=== PATIENT | male | born 1990 | race Caucasian/White ===

== ENCOUNTER 2016-04-25 13:38 | Emergency (ER) | payer MEDICAID ==
[~2016-04-25] VITALS: Ht 160 cm; Wt 86.2 kg
[2016-04-25 13:41] VITALS: BP 164/115
--- NOTE | 2016-04-25 13:54 | NUR ---
PT W/C ASSISTED TO BED 4 AT THIS TIME.
--- NOTE | 2016-04-25 13:56 | NUR ---
26/M BIB FAMILY C/O BLOODY VOMIT S/P DRINKING ALCOHOL FOR 5 DAYS STRAIGHT. PT STATES NO BLOODY VOMITING NOTED AT THIS TIME;SKIN IS PINK/WARM/DRY; AAOX4 WITH EVEN AND STEADY GAIT; LUNGS CLEAR BL; HR 112 / MINS, BP 158/95 AT THIS TIME. PT DENIES ANY FEVER, CP, SOB, OR COUGH AT THIS TIME; PATIENT STATES HAS ABDOMINAL PAIN OF 7/10 AT THIS TIME;PATIENT POSITIONED FOR COMFORT; HOB ELEVATED; BEDRAILS UP X2; BED DOWN. ER MD MADE AWARE OF PT STATUS.
[2016-04-25] MEDS ORDERED: NACL 0.9% 1,000 ML IV SCH (14:06)
[2016-04-25] MEDS ORDERED: PANTOPRAZOLE 40 MG INJ VIAL IVP ONE (14:10)
[2016-04-25] MEDS ORDERED: ONDANSETRON 4 MG/2 ML VIAL IVP ONE (14:10)
[2016-04-25] MEDS ORDERED: OCTREOTIDE ACETATE 100 MCG/ML VIAL IV SCH (14:10)
[2016-04-25] MEDS ORDERED: LORazepam 2 MG/ML VIAL IVP ONE (14:10)
[2016-04-25 14:36] LABS: BASOPHILS # (AUTO) 0.1 K/uL (0.00-0.22); BASOPHILS % (AUTO) 1.7 % (0.0-2.0); EOSINOPHILS # (AUTO) 0.1 K/uL (0-0.4); EOSINOPHILS % (AUTO) 1.2 % (0.0-4.0); HEMATOCRIT 46.7 % (36-52); HEMOGLOBIN 15.6 g/dL (12.0-18.0); LYMPHOCYTES # (AUTO) 1.4 K/uL (2.0-11.5); MEAN CORPUSCULAR HEMOGLOBIN 32 pg (27-31); MEAN CORPUSCULAR HGB CONC 34 g/dL (33-37); MEAN CORPUSCULAR VOLUME 96 fL (80-94); MONOCYTES # (AUTO) 0.6 K/uL (0.8-1.0); MONOCYTES % (AUTO) 6.9 % (1.7-9.3); NEUTROPHILS % (AUTO) 73.2 % (42.2-75.2); PLATELET COUNT (AUTO) 189 K/uL (140-450); RED BLOOD CELL COUNT(AUTO) 4.85 MIL/uL (4.20-6.10); RED CELL DISTRIBUTION WIDTH 12.7 % (11.6-13.7); WHITE BLOOD COUNT (AUTO) 8.2 K/uL (4.8-10.8)
[2016-04-25 14:47] LABS: APPEARANCE,URINE CLEAR (CLEAR); BILIRUBIN,URINE NEGATIVE (NEGATIVE); BLOOD, URINE NEGATIVE (NEGATIVE); COLOR,URINE YELLOW (YELLOW); LEUKOCYTE ESTERASE ,URINE NEGATIVE (NEGATIVE); NITRITE, URINE NEGATIVE (NEGATIVE); PH,URINE 8.5 (5.0-9.0); PROTEIN,URINE 2+ (NEGATIVE); UGLUCOSE NEGATIVE (NEGATIVE); UROBILINOGEN,URINE 0.2 EU/dL (0.2 - 1)
[2016-04-25 14:52] LABS: ANION GAP 22.2 (8-16); CALCIUM 8.9 mg/dL (8.5-10.1); CARBON DIOXIDE 24.5 mmol/L (21-32); CREATININE 0.8 mg/dL (0.6-1.3); POTASSIUM 3.7 mmol/L (3.5-5.1)
[2016-04-25 14:53] LABS: BACTERIA,URINE RARE /HPF (None Seen); MUCUS,URINE 3+ /LPF (None Seen); RBC,URINE 0-3 /HPF (0-5); SQUAMOUS EPITHELIAL CELL,UR 0-3 /LPF (0-3 (FEW)); WBC,URINE 0-3 /HPF (0-5)
[2016-04-25 14:57] LABS: ALBUMIN 4.4 g/dL (3.4-5.0); TOTAL BILIRUBIN 0.9 mg/dL (0.0-1.0); TOTAL PROTEIN, SERUM 8.5 g/dL (6.4-8.2)
[2016-04-25 14:57] LABS: AMPHETAMINE, URINE NEG. ng/ml (NEG <=1000); BARBITURATE, URINE NEG. ng/ml (NEG <=200); BENZODIAZEPINE, URINE NEG. ng/mL (NEG <=200); CANNABINOID, URINE NEG. ng/mL (NEG <=50); COCAINE, URINE NEG. ng/mL (NEG <=300); OPIATE, URINE NEG. ng/mL (NEG <=2000); PHENCYCLIDINE SCREEN,URINE NEG. ng/mL (NEG <=25)
[2016-04-25 14:58] LABS: INR 1.2 (0.8-1.2); PARTIAL THROMBOPLASTIN TIME 27.4 secs (22-35.6); PROTHROMBIN TIME 11.1 secs (10.8-13.4)
[2016-04-25 15:05] LABS: CREATINE KINASE MB 1.4 ng/mL (0-3.6)
--- NOTE | 2016-04-25 15:06 | NUR ---
CALLED [facility] FOR MED:SANDOSTATIN .
--- NOTE | 2016-04-25 16:00 | NUR ---
IV removed, catheter intact and site benign. Applied folded 4x4 gauze and tape to stop bleeding.
[2016-04-25 16:16] VITALS: BP 127/64
--- NOTE | 2016-04-25 16:16 | NUR ---
Patient discharged with v/s stable. Written and verbal after care instructions given and explained. Patient alert, oriented and verbalized understanding of instructions. Ambulatory with steady gait. All questions addressed prior to discharge. ID band removed. Patient advised to follow up with PMD. Rx of ZOFRAN & LIBRIUM given. Patient educated on indication of medication including possible reaction and side effects. Opportunity to ask questions provided and answered.
== END 2016-04-25 16:16 | disposition home or self-care (01) ==
LOC: MED 13:45
DX: K29.50 Unspecified chronic gastritis without bleeding (principal); F10.10 Alcohol abuse, uncomplicated; I10 Essential (primary) hypertension; Y90.1 Blood alcohol level of 20-39 mg/100 ml; Z98.890 Other specified postprocedural states
CPT/HCPCS: 36415; 71010; 80053; 80305; 81001; 82550; 82553; 83690; 84484; 85025; 85610; 85730; 86886; 86900; 86901; 93005; 96361; 96374; 96375; 99285; C9113; G0482; J2060; J2354; J2405; Q0092; 43753; 99284; J7030

== ENCOUNTER 2016-05-15 19:30 | Inpatient (IN) | payer MEDICAID ==
[~2016-05-15] VITALS: Ht 160 cm; Wt 90.7 kg
[2016-05-15 20:25] VITALS: BP 156/107
--- NOTE | 2016-05-15 20:58 | NUR ---
TO ER BED 3
[2016-05-15] MEDS ORDERED: LORazepam 2 MG/ML VIAL IVP ONE (21:10)
--- NOTE | 2016-05-15 21:15 | NUR ---
PATIENT PRESENTS TO ED WITH ALCOHOL WITHDRAWL SYMPTOMS . PT STATES HE HAS BEEN TRYING TO QUIT DRINKING ALCOHOL SINCE YESTERDAY. PT REPORTS HX OF HTN . DENIES N/V/D; SKIN IS PINK/WARM/DRY; AAOX4 WITH EVEN AND STEADY GAIT; LUNGS CLEAR BL; HR EVEN AND REGULAR; PT DENIES ANY FEVER, CP, SOB, OR COUGH AT THIS TIME; PATIENT STATES PAIN OF 0/10 AT THIS TIME; VSS; PATIENT POSITIONED FOR COMFORT; HOB ELEVATED; BEDRAILS UP X2; BED DOWN. ER MD MADE AWARE OF PT STATUS. AT BEDSIDE AT THIS TIME
[2016-05-15] MEDS ORDERED: MULTIVITAMIN-12 10 ML, THIAMINE 100 MG, MAGNESIUM SULFATE 50% 2,000 MG, FOLIC ACID 5 MG... IV ONE (21:20)
[2016-05-15] MEDS ORDERED: ONDANSETRON 4 MG/2 ML VIAL ONE (21:37)
[2016-05-15] MEDS ORDERED: ONDANSETRON 4 MG/2 ML VIAL IVP ONE (21:55)
[2016-05-15] MEDS ORDERED: MULTIVITAMIN-12 10 ML, THIAMINE 100 MG, MAGNESIUM SULFATE 50% 2,000 MG, FOLIC ACID 5 MG... IV STA (21:55)
[2016-05-15] MEDS ORDERED: LORazepam 2 MG/ML VIAL IVP STA (21:56)
[2016-05-15] MEDS ORDERED: FOLIC ACID 5 MG/ML SYR ONE (22:11)
[2016-05-15] MEDS ORDERED: MAGNESIUM SULFATE 50% 1000 MG/2 ML VIAL IV ONE (22:11)
[2016-05-15] MEDS ORDERED: THIAMINE 200 MG/2 ML VIAL ONE (22:11)
[2016-05-15] MEDS ORDERED: MULTIVITAMIN-12 10 ML VIAL IV ONE (22:11)
--- NOTE | 2016-05-15 23:15 | NUR ---
Patient appears to be resting comfortably in bed. Vital Signs within normal limits. Respirations even and unlabored. AT BEDSIDE AT THIS TIME
--- NOTE | 2016-05-15 23:57 | NUR ---
ATTEMPTED TO GIVE REPORT AT THIS TIME. RN BUSY AT THIS TIME. TO CALL BACK
--- NOTE | 2016-05-16 00:04 | NUR ---
Patient will be admitted to care of DR. ALLEN. Admited to TELE. Will go to room 108B. Belongings list completed. Report to KURT PARSON.
--- NOTE | 2016-05-16 00:05 | NUR ---
ADMITTED A PT FROM ER. TRANSPORTED VIA GURNEY, ACCOMPANIED BY ER NURSE. PT IS AAOX4, HAS NO COMPLAIN OF PAIN. ON ROOM AIR, NO S/S OF RESPIRATORY DISTRESS/DISCOMFORT NOTED. IV SITE PATENT AND INTACT. ID BAND UPDATED. SKIN CHECKING DONE. MRSA SWABBING DONE. ORIENTATION TO ROOM, PLAN OF DISCUSSED, VERBALIZED UNDERSTANDING. SAFETY MEASURES INITIATED, CALL LIGHT WITHIN REACH. WILL CONTINUE TO MONITOR.
--- NOTE | 2016-05-16 00:17 | NUR ---
Pt report given to EB HICKS. Transfer of care at this time.
--- NOTE | 2016-05-16 00:30 | NUR ---
JERRY CALLED VIA TELEPHONE AND SPOKE TO THE PATIENT.
[2016-05-16 00:50] VITALS: BP 144/98
[2016-05-16] MEDS ORDERED: HYDROcodone/APAP 5/325 MG 1 TAB TAB PO PRN (01:40)
[2016-05-16] MEDS ORDERED: ONDANSETRON 4 MG/2 ML VIAL IVP PRN (01:40)
[2016-05-16] MEDS ORDERED: ACETAMINOPHEN 325 MG TAB PO PRN (01:40)
[2016-05-16] MEDS ORDERED: LORazepam 2 MG/ML VIAL IVP PRN (01:40)
--- NOTE | 2016-05-16 01:50 | NUR ---
PT IS SLEEPING AT THIS TIME, NO SIGNS OF DISTRESS NOTED.
[2016-05-16] MEDS: DEXT 5% /NACL 0.9% 1,000 ML IV SCH ×3 (03:27→17:08)
[2016-05-16 04:00] VITALS: BP 150/94
--- NOTE | 2016-05-16 04:00 | NUR ---
V/S CHECKED. HAS NO COMPLAIN OF PAIN. NO S/S OF RESPIRATORY DISTRESS/DISCOMFORT NOTED.
[2016-05-16] MEDS: LORazepam 1 MG TAB PO SCH ×3 (05:00→20:15)
--- NOTE | 2016-05-16 06:48 | NUR ---
PT IS VOMITING. ADMINISTERED ZOFRAN PER MD ORDERED.
--- NOTE | 2016-05-16 07:15 | NUR ---
ENDORSED REPORT TO DAY SHIFT NURSE FOR CONTINUITY OF CARE. PT IS STABLE.
--- NOTE | 2016-05-16 07:35 | NUR ---
PATIENT HAS BEEN SCREENED AND CATEGORIZED MODERATE NUTRITION RISK. PATIENT WILL BE SEEN WITHIN 3-5 DAYS OF ADMISSION. 05/18/16-05/20/[address]
--- NOTE | 2016-05-16 07:36 | NUR ---
PT ASLEEP IN BED, EASILY AROUSABLE. BREATHING EVENLY AND UNLABORED. NO SIGNS OF ACUTE DISTRESS. SKIN IS INTACT WARM AND DRY. NO SIGNS OF ANY BOWEL/BLADDER DISCOMFORT. NO C/O OF PAIN. ALL NEEDS ATTENDED, SAFETY PRECAUTIONS MAINTAINED. CALL LIGHT WITHIN REACH.
[2016-05-16 08:00] VITALS: BP 158/103
[2016-05-16] MEDS: MULTIVITAMIN 1 TAB PO SCH (08:10)
[2016-05-16] MEDS: FOLIC ACID 1 MG TAB PO SCH (08:10)
[2016-05-16] MEDS: THIAMINE 100 MG TAB PO SCH (08:10)
[2016-05-16 12:00] VITALS: BP 151/106
[2016-05-16 15:56] VITALS: BP 157/100
--- NOTE | 2016-05-16 19:02 | NUR ---
PT ALERT AND RESPONSIVE, NO SIGNS OF ACUTE DISTRESS. ENDORSED TO ONCOMING DIRECTOR OF MANUFACTURING OPERATIONS NURSE FOR CONTINUITY OF CARE.
--- NOTE | 2016-05-16 19:03 | NUR ---
RECEIVED REPORT FROM DAY SHIFT NURSE. PT IS AAOX4, HAS NO COMPLAIN OF PAIN AT THIS TIME. ON ROOM AIR, HAS NO S/S OF RESPIRATORY DISTRESS/DISCOMFORT NOTED. IV SITE IS PATENT AND INTACT. PLAN OF CARE DISCUSSED, VERBALIZED UNDERSTANDING. SAFETY MEASURES CHECKED, CALL LIGHT WITHIN REACH. WILL CONTINUE TO MONITOR.
[2016-05-16 20:00] VITALS: BP 145/100
--- NOTE | 2016-05-16 20:16 | NUR ---
VITALS CHECKED, NO COMPLAIN OF PAIN. DUE PO MED GIVEN. PT TOLERATED WELL.
--- NOTE | 2016-05-16 22:10 | NUR ---
PT SLEEPING. HAS NO S/S OF RESPIRATORY DISTRESS/DISCOMFORT NOTED. CALL LIGHT WITHIN REACH.
[2016-05-17] VITALS: BP 143/88
--- NOTE | 2016-05-17 | NUR ---
V/S CHECKED AND STABLE. HAS NO COMPLAIN OF PAIN. NO S/S OF RESPIRATORY DISTRESS/ DISCOMFORT NOTED.
--- NOTE | 2016-05-17 02:00 | NUR ---
PT SLEEPING. NO S/S OF RESPIRATORY DISTRESS/DISCOMFORT NOTED. SAFETY MEASURES CHECKED, CALL LIGHT WITHIN REACH.
[2016-05-17] MEDS: DEXT 5% /NACL 0.9% 1,000 ML IV SCH ×2 (03:59→09:28)
[2016-05-17 04:00] VITALS: BP 147/103
--- NOTE | 2016-05-17 04:00 | NUR ---
PT SLEEPING, BUT EASILY AROUSABLE BY HIS NAME. V/S CHECKED, HAS NO COMPLAIN OF PAIN. NO S/S OF RESPIRATORY DISTRESS/DISCOMFORT NOTED.
[2016-05-17] MEDS: LORazepam 1 MG TAB PO SCH (05:00)
--- NOTE | 2016-05-17 07:20 | NUR ---
ENDORSED REPORT TO DAY SHIFT NURSE FOR CONTINUITY OF CARE. PT REMAIN IN STABLE CONDITION.
--- NOTE | 2016-05-17 07:25 | NUR ---
RECEIVED REPORT FROM NIGHT RN. PT RESTING IN BED. AAOX4. NO S/S OF ACUTE DISTRESS. PT DENIES PAIN. IV SITE PATENT AND INTACT. CALL LIGHT WITHIN REACH. SAFETY MEASURES ENSURED. WILL CONTINUE TO MONITOR.
[2016-05-17 08:36] VITALS: BP 140/82
[2016-05-17] MEDS: FOLIC ACID 1 MG TAB PO SCH (09:27)
[2016-05-17] MEDS: MULTIVITAMIN 1 TAB PO SCH (09:27)
[2016-05-17] MEDS: THIAMINE 100 MG TAB PO SCH (09:27)
[2016-05-17] MEDS ORDERED: TAB-A-VITE1 TA3 PO (09:45)
[2016-05-17] MEDS ORDERED: NATURE'S BLEND100 M2 PO (09:45)
[2016-05-17] MEDS ORDERED: NATURE'S BLEND F1 M1 PO (09:45)
[2016-05-17] MEDS ORDERED: ATIVAN1 M1 PO (09:45)
--- NOTE | 2016-05-17 10:06 | NUR ---
PT RESTING IN BED. NO S/S OF ACUTE DISTRESS. PT DENIES PAIN. IV SITE PATENT AND INTACT. PT TOLERATED AM MEDS WELL. CALL LIGHT WITHIN REACH. SAFETY MEASURES ENSURED. WILL CONTINUE TO MONITOR.
[2016-05-17 10:12] VITALS: BP 140/82
--- NOTE | 2016-05-17 10:59 | NUR ---
PT CLEARED FOR DISCHARGE. DISCHARGE INSTRUCTIONS PROVIDED. PT VERBALIZED UNDERSTANDING. IV TAKEN OUT. TIP INTACT. PT'S HERE [facility] TRANSPORT. NO S/S OF ACUTE DISTRESS. PT DENIES PAIN. PT REMAINS IN STABLE CONDITION.
== END 2016-05-17 11:20 | disposition home or self-care (01) | DRG 775 ==
LOC: MED 19:30 → MTU 23:10
PROVIDERS: ADMIT Preventive Medicine Preventive Medicine/Occupational Environmental Medicine; ATTEND Preventive Medicine Preventive Medicine/Occupational Environmental Medicine
DX: F10.239 Alcohol dependence with withdrawal, unspecified (principal); K92.0 Hematemesis; Y90.1 Blood alcohol level of 20-39 mg/100 ml; I10 Essential (primary) hypertension; R74.0 Nonspecific elevation of levels of transaminase and lactic acid dehydrogenase [LDH]; E16.2 Hypoglycemia, unspecified

== ENCOUNTER 2016-06-10 11:50 | Emergency (ER) | payer MEDICAID ==
[~2016-06-10] VITALS: Ht 162.6 cm; Wt 86.2 kg
[~2016-06-10 11:50] MED LIST: ATIVAN1 M1 PO; NATURE'S BLEND F1 M1 PO; NATURE'S BLEND100 M2 PO; TAB-A-VITE1 TA3 PO
[2016-06-10 11:57] VITALS: BP 125/102
--- NOTE | 2016-06-10 12:15 | NUR ---
PATIENT PRESENTS TO ED WITH SEVERE TREMORS VISUAL HALLUCINATION (ANTS CRAWLING ON THE NUNEZ) . PT STATES HEADACHE, ANXIOUS; SKIN IS PINK/WARM/DRY; AAOX4 WITH EVEN AND STEADY GAIT; LUNGS CLEAR BL; HR EVEN AND REGULAR; PT DENIES ANY FEVER, CP, SOB, OR COUGH AT THIS TIME; PATIENT STATES PAIN OF 8/10 AT THIS TIME; VSS; PATIENT POSITIONED FOR COMFORT; HOB ELEVATED; BEDRAILS UP X2; BED DOWN. ER MD MADE AWARE OF PT STATUS.
[2016-06-10] MEDS ORDERED: MULTIVITAMIN-12 10 ML, THIAMINE 100 MG, MAGNESIUM SULFATE 50% 2,000 MG, FOLIC ACID 5 MG... IV ONE (12:17)
[2016-06-10] MEDS ORDERED: LORazepam 2 MG/ML VIAL IVP ONE (12:20)
[2016-06-10] MEDS ORDERED: ONDANSETRON 4 MG/2 ML VIAL IVP ONE (12:20)
--- NOTE | 2016-06-10 12:20 | NUR ---
PT HELD IN TRIAGE AND TREATMENT STARTED--, CARPET INSPECTOR MADE AWARE--- ROOM BEING MADE FOR PT----
[2016-06-10] MEDS ORDERED: ONDANSETRON 4 MG/2 ML VIAL ONE (12:23)
[2016-06-10] MEDS ORDERED: NACL 0.9% 1,000 ML IV ONE (12:40)
--- NOTE | 2016-06-10 13:10 | NUR ---
Patient transferred to bed 6 for further care.
--- NOTE | 2016-06-10 13:20 | NUR ---
PT RESTING ON BED;NO ACUTE DISTRESS NOTED;WILL CONTINUE TO MONITOR PT.
--- NOTE | 2016-06-10 14:50 | NUR ---
PT SLEEPING;PT ASKED FOR WATER STATES "I'M SO THIRSTY"GAVE PT I CUP OF WATER;NO ACUTE DSITRESS NOTED;WILL CONTINUE TO MONITOR PT.
--- NOTE | 2016-06-10 15:49 | NUR ---
PT ASKED FOR ANOTHER CUP OF WATER;PT CONSUMMED 1 CUP OF WATER;STATES "HE FEELS MUCH BETTER"WILL CONTINUE TO MONITOR PT.
--- NOTE | 2016-06-10 16:45 | NUR ---
IV SITE IS LEAKING;FIXED LOOSE CONNECTOR OF TUBING AND CATH;NO INFILTRATION NOTED;
--- NOTE | 2016-06-10 17:05 | NUR ---
REDUCED TREMORS ON UPPER EXTREMITIES NOTED;PT STATES HE FEELS MUCH BETTER";WILL CONTINUE TO MONITOR PT.
--- NOTE | 2016-06-10 17:07 | NUR ---
DR ORO AT BEDSIDE.
--- NOTE | 2016-06-10 17:38 | NUR ---
Patient discharged with v/s stable. Written and verbal after care instructions given and explained.Patient alert, oriented and verbalized understanding of instructions. Ambulatory with steady gait. All questions addressed prior to discharge. ID band removed. Patient advised to follow up with PMD. Rx of ATIVAN given. Patient educated on indication of medication including possible reaction and side effects. Opportunity to ask questions provided and answered.ADVISED PT TO INCREASE FLUID AND TO REST TO DETOXIFY ALCOHOL.
[2016-06-10 17:39] VITALS: BP 145/90
== END 2016-06-10 17:38 | disposition home or self-care (01) ==
LOC: MED 11:50
DX: F10.129 Alcohol abuse with intoxication, unspecified (principal); I10 Essential (primary) hypertension
CPT/HCPCS: 36415; 80053; 80305; 84484; 85025; 96365; 96366; 96375; 99285; A9153; G0482; J2060; J2405; J3411; J3475; J3490; J7030

== ENCOUNTER 2016-07-06 09:23 | Emergency (ER) | payer MEDICAID ==
[~2016-07-06] VITALS: Ht 157.5 cm; Wt 83.9 kg
[2016-07-06 09:25] VITALS: BP 149/88
--- NOTE | 2016-07-06 09:33 | NUR ---
PT AMBULATED TO BED 5.
--- NOTE | 2016-07-06 09:33 | NUR ---
Lucía rubalcava in [facility] - 07/06/16 at 0938 by PEDRO LUIS PT AMBULATED TO BED 4.
--- NOTE | 2016-07-06 09:35 | NUR ---
PATIENT PRESENTS TO ED WITH GENERALIZED TREMORS AND RIGHT HAND PAIN . PT STATES . ACTIVELY VOMITING; SKIN IS PINK/WARM/DRY; AAOX4 WITH EVEN AND STEADY GAIT; LUNGS CLEAR BL; HR EVEN AND REGULAR; PT DENIES ANY FEVER, CP, SOB, OR COUGH AT THIS TIME; PATIENT STATES PAIN OF 6/10 AT THIS TIME; VSS; PATIENT POSITIONED FOR COMFORT; HOB ELEVATED; BEDRAILS UP X2; BED DOWN. ER MD MADE AWARE OF PT STATUS.
[2016-07-06] MEDS ORDERED: NACL 0.9% 1,000 ML IV SCH (09:36)
[2016-07-06] MEDS ORDERED: PANTOPRAZOLE 40 MG INJ VIAL IVP ONE (09:40)
[2016-07-06] MEDS ORDERED: LORazepam 2 MG/ML VIAL IVP ONE (09:40)
[2016-07-06] MEDS ORDERED: ONDANSETRON 4 MG/2 ML VIAL IVP ONE (09:40)
--- NOTE | 2016-07-06 10:14 | NUR ---
AT BEDSIDE, INSTRUCTED PT NOT TO GET OUT OF GUERNEY WITHOUT HELP. REMAINS WITH GENERALIZED TREMORS.
[2016-07-06] MEDS ORDERED: MAG SULF 2000 MG/WATER PREMIX 50 ML IV ONE (10:35)
[2016-07-06] MEDS ORDERED: NACL 0.9% 1,000 ML IV ONE (10:35)
[2016-07-06] MEDS ORDERED: THIAMINE 100 MG TAB PO SCH (10:44)
[2016-07-06] MEDS ORDERED: MULTIVITAMIN 1 TAB PO SCH (10:44)
[2016-07-06] MEDS ORDERED: FOLIC ACID 1 MG TAB PO SCH (10:44)
--- NOTE | 2016-07-06 10:53 | NUR ---
NO CONTINUED EMESIS, PT DENIES NAUSEA---MD SPOKE WITH PT. MILD TREMORS NOTED. WILL CONTINUE TO OBSERVE FOR N/V CONTROL
[2016-07-06 11:31] VITALS: BP 115/85
--- NOTE | 2016-07-06 11:32 | NUR ---
Patient discharged with v/s stable. Written and verbal after care instructions given and explained. Patient alert, oriented and verbalized understanding of instructions. Ambulatory with steady gait. All questions addressed prior to discharge. ID band removed. Patient advised to follow up with PMD. Rx of ZOFRAN/ PROTONIX given. Patient educated on indication of medication including possible reaction and side effects. Opportunity to ask questions provided and answered.
[2016-07-07] MEDS ORDERED: FOLIC ACID 1 MG TAB PO SCH (09:00)
[2016-07-07] MEDS ORDERED: THIAMINE 100 MG TAB PO SCH (09:00)
[2016-07-07] MEDS ORDERED: MULTIVITAMIN 1 TAB PO SCH (09:00)
== END 2016-07-06 11:32 | disposition home or self-care (01) ==
LOC: MED 09:23
DX: S62.316A Displaced fracture of base of fifth metacarpal bone, right hand, initial encounter for closed fracture (principal); K29.20 Alcoholic gastritis without bleeding; F10.239 Alcohol dependence with withdrawal, unspecified; I10 Essential (primary) hypertension; W20.8XXA Other cause of strike by thrown, projected or falling object, initial encounter; Y93.89 Activity, other specified; Y92.89 Other specified places as the place of occurrence of the external cause; Y99.8 Other external cause status
CPT/HCPCS: 29125; 36415; 73130; 80053; 81001; 83690; 83735; 85025; 85610; 85730; 87086; 96365; 96367; 96375; 99285; C9113; J2060; J2405; J3475; J7030; Q0092

== ENCOUNTER 2021-11-14 06:35 | Emergency (ER) | payer MEDICAID ==
[~2021-11-14] VITALS: Ht 154.9 cm; Wt 65.8 kg
[2021-11-14 06:40] VITALS: BP 131/79
--- NOTE | 2021-11-14 06:42 | NUR ---
PT BIBA BLS. TAKEN TO BED 9
[2021-11-14] MEDS ORDERED: ONDANSETRON 4 MG/2 ML VIAL IVP ONE (07:00)
[2021-11-14] MEDS ORDERED: NACL 0.9% 1,000 ML IV SCH (07:00)
--- NOTE | 2021-11-14 07:04 | NUR ---
Dr. Amador examining patient.
[2021-11-14] MEDS ORDERED: KETOROLAC 30 MG/ML VIAL IVP ONE (07:10)
[2021-11-14 07:16] LABS: BASOPHILS # (AUTO) 0.1 K/uL (0.00-0.22); BASOPHILS % (AUTO) 0.8 % (0.0-2.0); EOSINOPHILS # (AUTO) 0.1 K/uL (0-0.4); EOSINOPHILS % (AUTO) 0.5 % (0.0-4.0); HEMATOCRIT 35.5 % (36-52); HEMOGLOBIN 12.3 g/dL (12.0-18.0); LYMPHOCYTES # (AUTO) 0.6 K/uL (2.0-11.5); LYMPHOCYTES % (AUTO) 5.4 % (20.5-51.1); MEAN CORPUSCULAR HEMOGLOBIN 35 pg (27-31); MEAN CORPUSCULAR HGB CONC 35 g/dL (33-37); MEAN CORPUSCULAR VOLUME 99.4 fL (80-94); MONOCYTES # (AUTO) 0.7 K/uL (0.8-1.0); MONOCYTES % (AUTO) 6.5 % (1.7-9.3); NEUTROPHILS # (AUTO) 9.5 K/uL (1.8-7.7); NEUTROPHILS % (AUTO) 86.8 % (42.2-75.2); PLATELET COUNT (AUTO) 58 K/uL (140-450); RED BLOOD CELL COUNT(AUTO) 3.57 MIL/uL (4.20-6.10)
[2021-11-14 07:30] LABS: ALBUMIN 3.1 g/dL (3.4-5.0); ANION GAP 20.6 (8-16); CARBON DIOXIDE 21.4 mmol/L (21-32); CREATININE 0.6 mg/dL (0.6-1.3); TOTAL BILIRUBIN 0.9 mg/dL (0.0-1.0)
--- NOTE | 2021-11-14 07:38 | NUR ---
DR MEI AT BEDSIDE FOR REEVAL
[2021-11-14] MEDS ORDERED: ATA25 PO ×2 (07:43→08:02)
[2021-11-14] MEDS ORDERED: ONDA8TAB87 PO ×2 (07:43→08:02)
[2021-11-14] MEDS ORDERED: IBUP-2213 PO ×2 (07:43→08:02)
--- NOTE | 2021-11-14 08:04 | NUR ---
Patient discharged with v/s stable. Written and verbal after care instructions ABOUT N/V ABD PAIN given and explained. Patient alert, oriented and verbalized understanding of instructions. Ambulatory with steady gait. All questions addressed prior to discharge. ID band removed. Patient advised to follow up with PMD. Rx of ATARAX HCL, MOTRIN, ZOFRAN ODT given. Patient educated on indication of medication including possible reaction and side effects. Opportunity to ask questions provided and answered. GIVEN HOMELESS PACKET, FOOD AND DRINK, AND SHIRT, CALLED AN UBER FOR PT FOR DISCHARGE TO ADDRESS IN CHART.
== END 2021-11-14 08:04 | disposition home or self-care (01) ==
LOC: MED 06:35
DX: R10.13 Epigastric pain (principal)
CPT/HCPCS: 36415; 80053; 83690; 85025; 96361; 96374; 96375; 99284; J1885; J2405

== ENCOUNTER 2023-07-28 13:14 | Emergency (ER) | payer MEDICAID, OTHER ==
[~2023-07-28] VITALS: Ht 165.1 cm; Wt 70.3 kg
[~2023-07-28 13:14] MED LIST changes: +ATA25 PO; -ATIVAN1 M1 PO; +IBUP-2213 PO; -NATURE'S BLEND F1 M1 PO; -NATURE'S BLEND100 M2 PO; +ONDA8TAB87 PO; -TAB-A-VITE1 TA3 PO
[2023-07-28 13:31] VITALS: BP 117/76; PULSE 100; RESP 18; TEMP 98; O2SAT 96
[2023-07-28 13:42] VITALS: O2SAT 95
[2023-07-28] MEDS: NACL 0.9% 2,000 ML IV ONE (13:44)
[2023-07-28] MEDS: ACETAMINOPHEN EXTRA STRENGTH 500 MG TAB PO ONE (13:47)
[2023-07-28 13:49] LABS: BASOPHILS # (AUTO) 0.2 K/uL (0.00-0.22); BASOPHILS % (AUTO) 3.1 % (0.0-2.0); EOSINOPHILS # (AUTO) 0.1 K/uL (0-0.4); EOSINOPHILS % (AUTO) 2.7 % (0.0-4.0); HEMATOCRIT 31.6 % (36-52); HEMOGLOBIN 10.6 g/dL (12.0-18.0); LYMPHOCYTES # (AUTO) 1.7 K/uL (2.0-11.5); LYMPHOCYTES % (AUTO) 31.2 % (20.5-51.1); MEAN CORPUSCULAR HEMOGLOBIN 30 pg (27-31); MEAN CORPUSCULAR HGB CONC 33 g/dL (33-37); MEAN CORPUSCULAR VOLUME 89.7 fL (80-94); MONOCYTES # (AUTO) 0.4 K/uL (0.8-1.0); MONOCYTES % (AUTO) 7.7 % (1.7-9.3); NEUTROPHILS # (AUTO) 2.9 K/uL (1.8-7.7); NEUTROPHILS % (AUTO) 55.3 % (42.2-75.2); PLATELET COUNT (AUTO) 51 K/uL (140-450); RED BLOOD CELL COUNT(AUTO) 3.52 MIL/uL (4.20-6.10); RED CELL DISTRIBUTION WIDTH 19.9 % (11.6-13.7); WHITE BLOOD COUNT (AUTO) 5.3 K/uL (4.8-10.8)
[2023-07-28 14:17] LABS: ANION GAP 13.8 (8-16); CALCIUM 7.9 mg/dL (8.5-10.1); CARBON DIOXIDE 27.9 mmol/L (21-32); CREATININE 0.6 mg/dL (0.6-1.3); POTASSIUM 3.7 mmol/L (3.5-5.1)
[2023-07-28 14:25] LABS: ALANINE AMINOTRANSFERASE 45 U/L (12-78); ALBUMIN 3.1 g/dL (3.4-5.0); ALKALINE PHOSPHATASE 220 U/L (50-136); ASPARTATE AMINOTRANSFERASE 162 U/L (15-37); BILIRUBIN,DIRECT 0.4 mg/dL (0.0-0.3); CREATINE KINASE, TOTAL 488 U/L (39-308); TOTAL BILIRUBIN 0.8 mg/dL (0.0-1.0); TOTAL PROTEIN, SERUM 8.7 g/dL (6.4-8.2)
[2023-07-28 14:35] LABS: ALCOHOL, BLOOD 492 mg/dL (<10)
[2023-07-28 16:01] VITALS: BP 116/71; PULSE 97; RESP 16; TEMP 98; O2SAT 100; O2SAT 95
== END 2023-07-28 18:04 | disposition home or self-care (01) ==
LOC: MED 13:14
DX: S60.511A Abrasion of right hand, initial encounter (principal); F10.129 Alcohol abuse with intoxication, unspecified; F41.9 Anxiety disorder, unspecified; R07.9 Chest pain, unspecified; I10 Essential (primary) hypertension; R40.4 Transient alteration of awareness; M25.562 Pain in left knee; Z59.00 Homelessness unspecified; Z86.69 Personal history of other diseases of the nervous system and sense organs; Z79.1 Long term (current) use of non-steroidal anti-inflammatories (NSAID); Z79.899 Other long term (current) drug therapy; Y90.8 Blood alcohol level of 240 mg/100 ml or more; X58.XXXA Exposure to other specified factors, initial encounter; Y93.89 Activity, other specified; Y92.89 Other specified places as the place of occurrence of the external cause; Y99.8 Other external cause status
CPT/HCPCS: 36415; 70450; 71045; 73130; 73562; 80048; 80076; 82550; 82553; 85025; 93005; 96360; 99285; G0482; J7030

== ENCOUNTER 2023-07-28 20:24 | Emergency (ER) | payer OTHER ==
[~2023-07-28] VITALS: Ht 160 cm; Wt 77.1 kg
[2023-07-28 20:29] VITALS: BP 144/97; PULSE 78; RESP 24; TEMP 98.3; O2SAT 98
[2023-07-28 21:41] LABS: BASOPHILS # (AUTO) 0.1 K/uL (0.00-0.22); BASOPHILS % (AUTO) 2.5 % (0.0-2.0); EOSINOPHILS # (AUTO) 0.1 K/uL (0-0.4); EOSINOPHILS % (AUTO) 2.4 % (0.0-4.0); HEMATOCRIT 30.9 % (36-52); HEMOGLOBIN 10.2 g/dL (12.0-18.0); LYMPHOCYTES # (AUTO) 1.9 K/uL (2.0-11.5); LYMPHOCYTES % (AUTO) 33.1 % (20.5-51.1); MEAN CORPUSCULAR HEMOGLOBIN 30 pg (27-31); MEAN CORPUSCULAR HGB CONC 33 g/dL (33-37); MEAN CORPUSCULAR VOLUME 89.9 fL (80-94); MONOCYTES # (AUTO) 0.5 K/uL (0.8-1.0); MONOCYTES % (AUTO) 8.8 % (1.7-9.3); NEUTROPHILS # (AUTO) 3.1 K/uL (1.8-7.7); NEUTROPHILS % (AUTO) 53.2 % (42.2-75.2); RED BLOOD CELL COUNT(AUTO) 3.44 MIL/uL (4.20-6.10); RED CELL DISTRIBUTION WIDTH 19.9 % (11.6-13.7); WHITE BLOOD COUNT (AUTO) 5.8 K/uL (4.8-10.8)
[2023-07-28] MEDS: ONDANSETRON 4 MG/2 ML VIAL IVP ONE (21:42)
[2023-07-28] MEDS: NACL 0.9% 1,000 ML IV ONE (21:42)
[2023-07-28] MEDS: LORazepam 2 MG/ML VIAL IVP ONE (21:44)
[2023-07-28 21:53] LABS: APPEARANCE,URINE CLEAR (CLEAR); BILIRUBIN,URINE 1+ (NEGATIVE); BLOOD, URINE TRACE-I (NEGATIVE); COLOR,URINE YELLOW (YELLOW); LEUKOCYTE ESTERASE ,URINE NEGATIVE (NEGATIVE); NITRITE, URINE NEGATIVE (NEGATIVE); PROTEIN,URINE 1+ (NEGATIVE); UGLUCOSE NEGATIVE (NEGATIVE); UROBILINOGEN,URINE >=8.0 EU/dL (0.2 - 1)
[2023-07-28 21:54] LABS: ANION GAP 16.9 (8-16); CALCIUM 7.8 mg/dL (8.5-10.1); CARBON DIOXIDE 25.8 mmol/L (21-32); CREATININE 0.6 mg/dL (0.6-1.3); POTASSIUM 3.7 mmol/L (3.5-5.1)
[2023-07-28 22:05] LABS: ICTOTEST NEGATIVE (NEGATIVE)
[2023-07-28 22:11] LABS: BACTERIA,URINE FEW /HPF (None Seen); MUCUS,URINE None Seen /LPF (None Seen); RBC,URINE 0-5 /HPF (0-5); SQUAMOUS EPITHELIAL CELL,UR 0-3 (FEW) /LPF (0-3 (FEW)); TRICHOMONAS,URINE None Seen /HPF (None Seen); WBC,URINE 0-5 /HPF (0-5); WHITE BLOOD CELL CASTS,URINE None Seen /LPF (None Seen); YEAST,URINE None Seen /HPF (None Seen)
[2023-07-28 22:27] LABS: PLATELET COUNT (AUTO) 42 K/uL (140-450)
[2023-07-29 02:00] VITALS: BP 130/76; PULSE 78; RESP 15; TEMP 98.3; O2SAT 98
== END 2023-07-29 02:02 | disposition home or self-care (01) ==
LOC: MED 20:24
DX: F10.129 Alcohol abuse with intoxication, unspecified (principal); R11.2 Nausea with vomiting, unspecified; I10 Essential (primary) hypertension; F15.90 Other stimulant use, unspecified, uncomplicated; Z79.899 Other long term (current) drug therapy; Y90.9 Presence of alcohol in blood, level not specified
CPT/HCPCS: 36415; 80048; 81001; 85025; 96374; 96375; 99284; J2060; J2405; J7030

== ENCOUNTER 2023-08-05 20:52 | Emergency (ER) | payer OTHER ==
[~2023-08-05] VITALS: Ht 160 cm; Wt 74.8 kg
[2023-08-05 20:58] VITALS: BP 122/70; PULSE 103; RESP 16; TEMP 99.5; O2SAT 97
[2023-08-05] MEDS: IBUPROFEN 600 MG TAB PO ONE (23:35)
[2023-08-05 23:37] VITALS: BP 128/70; PULSE 98; RESP 16; TEMP 98.9; O2SAT 97
[2023-08-07] MEDS ORDERED: FOLI1TAB89 PO (17:56)
== END 2023-08-06 01:38 | disposition home or self-care (01) ==
LOC: MED 20:52
DX: S20.211A Contusion of right front wall of thorax, initial encounter (principal); I10 Essential (primary) hypertension; Z86.69 Personal history of other diseases of the nervous system and sense organs; Z79.899 Other long term (current) drug therapy; Y04.0XXA Assault by unarmed brawl or fight, initial encounter; Y92.89 Other specified places as the place of occurrence of the external cause; Y93.89 Activity, other specified; Y99.8 Other external cause status
CPT/HCPCS: 71101; 99283

== ENCOUNTER 2023-08-06 05:10 | Observation (INO) | payer OTHER ==
[~2023-08-06] VITALS: Ht 160 cm; Wt 68.0 kg
[2023-08-06 05:14] VITALS: BP 132/82; PULSE 112; RESP 22; TEMP 98.1; O2SAT 99
[2023-08-06] MEDS: NACL 0.9% 1,000 ML IV ONE (05:36)
[2023-08-06] MEDS: LORazepam 2 MG/ML VIAL IVP ONE ×2 (05:41→05:42)
[2023-08-06] MEDS: ONDANSETRON 4 MG/2 ML VIAL IVP ONE (05:42)
[2023-08-06 06:03] LABS: BASOPHILS # (AUTO) 0.2 K/uL (0.00-0.22); BASOPHILS % (AUTO) 4.9 % (0.0-2.0); EOSINOPHILS # (AUTO) 0.1 K/uL (0-0.4); EOSINOPHILS % (AUTO) 2.2 % (0.0-4.0); HEMATOCRIT 31.4 % (36-52); HEMOGLOBIN 10.6 g/dL (12.0-18.0); LYMPHOCYTES # (AUTO) 1.3 K/uL (2.0-11.5); MEAN CORPUSCULAR HEMOGLOBIN 31 pg (27-31); MEAN CORPUSCULAR HGB CONC 34 g/dL (33-37); MEAN CORPUSCULAR VOLUME 91.1 fL (80-94); MONOCYTES # (AUTO) 0.6 K/uL (0.8-1.0); MONOCYTES % (AUTO) 12.7 % (1.7-9.3); NEUTROPHILS # (AUTO) 2.7 K/uL (1.8-7.7); NEUTROPHILS % (AUTO) 54.2 % (42.2-75.2); PLATELET COUNT (AUTO) 40 K/uL (140-450); RED BLOOD CELL COUNT(AUTO) 3.45 MIL/uL (4.20-6.10); RED CELL DISTRIBUTION WIDTH 20.1 % (11.6-13.7)
[2023-08-06 06:22] LABS: ANION GAP 15.3 (8-16); CALCIUM 8.2 mg/dL (8.5-10.1); CREATININE 0.7 mg/dL (0.6-1.3); POTASSIUM 3.3 mmol/L (3.5-5.1)
[2023-08-06 06:23] LABS: ALANINE AMINOTRANSFERASE 55 U/L (12-78); ALBUMIN 3.4 g/dL (3.4-5.0); ALKALINE PHOSPHATASE 242 U/L (50-136); ASPARTATE AMINOTRANSFERASE 180 U/L (15-37); BILIRUBIN,DIRECT 0.5 mg/dL (0.0-0.3); LIPASE 122 U/L (16-77); MAGNESIUM 1.2 mg/dL (1.8-2.4); PHOSPHORUS 3.3 mg/dL (2.5-4.9); TOTAL BILIRUBIN 1.2 mg/dL (0.0-1.0); TOTAL PROTEIN, SERUM 8.9 g/dL (6.4-8.2)
[2023-08-06 07:04] LABS: ACETONE, SERUM Negative (NEGATIVE)
[2023-08-06] MEDS ORDERED: LORazepam 2 MG/ML VIAL IVP PRN (07:40)
[2023-08-06] MEDS ORDERED: MAG SULF 2000 MG/WATER PREMIX 50 ML IV SCH (07:40)
[2023-08-06] MEDS: THIAMINE 200 MG/2 ML VIAL IM SCH (08:05)
[2023-08-06] MEDS ORDERED: KCL 20 MEQ IN 100 mL PREMIX 100 ML IV SCH (08:10)
[2023-08-06] MEDS: MAG SULF 2000 MG/WATER PREMIX 50 ML IV SCH (08:35)
[2023-08-06] MEDS: MULTIVITAMIN-12 10 ML, FOLIC ACID 1 MG in DEXTROSE 5% 1,000 ML IV SCH (09:18)
[2023-08-06] MEDS: chlordiazePOXIDE 25 MG CAP PO SCH (09:30)
[2023-08-06 09:37] LABS: INR 1.22 (0.8-1.2); PARTIAL THROMBOPLASTIN TIME 29.5 secs (22-35.6); PROTHROMBIN TIME 12.7 secs (10.8-13.4)
[2023-08-06 09:55] LABS: ANION GAP 16.8 (8-16); CALCIUM 7.6 mg/dL (8.5-10.1); CARBON DIOXIDE 24.5 mmol/L (21-32); CREATININE 0.5 mg/dL (0.6-1.3); POTASSIUM 3.3 mmol/L (3.5-5.1)
[2023-08-06 10:24] LABS: APPEARANCE,URINE CLEAR (CLEAR); BILIRUBIN,URINE NEGATIVE (NEGATIVE); BLOOD, URINE TRACE-I (NEGATIVE); COLOR,URINE YELLOW (YELLOW); LEUKOCYTE ESTERASE ,URINE NEGATIVE (NEGATIVE); NITRITE, URINE NEGATIVE (NEGATIVE); PROTEIN,URINE TRACE (NEGATIVE); UGLUCOSE NEGATIVE (NEGATIVE)
[2023-08-06] MEDS: POTASSIUM CHLORIDE 10 MEQ TABER PO SCH (10:42)
[2023-08-06 10:47] LABS: BACTERIA,URINE OCCASSIONAL /HPF (None Seen); RBC,URINE 0-5 /HPF (0-5); SQUAMOUS EPITHELIAL CELL,UR 0-3 (FEW) /LPF (0-3 (FEW)); WBC,URINE 0-5 /HPF (0-5)
[2023-08-06 13:00] VITALS: BP 132/94; PULSE 92; RESP 18; TEMP 98.4; O2SAT 98
[2023-08-06 16:00] VITALS: BP 106/72; PULSE 86; RESP 18; TEMP 98.3; O2SAT 100
[2023-08-06] MEDS: LORazepam 2 MG/ML VIAL IVP PRN (17:23)
[2023-08-06 20:00] VITALS: BP 119/79; PULSE 88; RESP 16; TEMP 99; O2SAT 98
[2023-08-06 20:23] VITALS: PULSE 80
[2023-08-07] VITALS (8 sets, daily range): BP systolic 115–138; BP diastolic 53–93; PULSE 70–89; RESP 16–18; TEMP 97.2–98.6; O2SAT 96–100
[2023-08-07] MEDS ORDERED: MORPHINE SULFATE 2 MG/ML SYR IVP PRN (05:00)
[2023-08-07] MEDS ORDERED: ACETAMINOPHEN 650 MG/20.3 ML UDC PO PRN (05:00)
[2023-08-07] MEDS: HYDROcodone/APAP 5/325 MG 1 TAB TAB PO PRN ×2 (05:13→09:58)
[2023-08-07] MEDS: MULTIVITAMIN-12 10 ML, FOLIC ACID 1 MG in DEXTROSE 5% 1,000 ML IV SCH (10:00)
[2023-08-07] MEDS: DOCUSATE SODIUM 100 MG GELCAP PO SCH (13:59)
[2023-08-07] MEDS ORDERED: FOLI1TAB89 PO (17:56)
== END 2023-08-07 20:00 ==
LOC: MED 05:10 → MTU 07:38 → MMU 12:11 → MTU 20:30
PROVIDERS: ADMIT Hospitalist; ATTEND Hospitalist
DX: F10.231 Alcohol dependence with withdrawal delirium (principal); E83.42 Hypomagnesemia; E87.6 Hypokalemia; K85.90 Acute pancreatitis without necrosis or infection, unspecified; F15.10 Other stimulant abuse, uncomplicated; E86.0 Dehydration; I10 Essential (primary) hypertension; R56.9 Unspecified convulsions; Z59.00 Homelessness unspecified; Z86.2 Personal history of diseases of the blood and blood-forming organs and certain disorders involving the immune mechanism; Y90.6 Blood alcohol level of 120-199 mg/100 ml
CPT/HCPCS: 36415; 70450; 71250; 80048; 80076; 81001; 82009; 83690; 83735; 84100; 85025; 85610; 85730; 87081; 93005; 96361; 96365; 96366; 96372; 96375; 96376; 99285; A9153; G0378; G0482; J2060; J2405; J3411; J3490; J7060; J3475; J3480